=== PATIENT | male | born 1945 | race Caucasian/White ===

== ENCOUNTER 2016-10-11 05:19 | Inpatient (IN) ==
[2016-10-04 14:59] LABS: HEMATOCRIT 45.7 % (42.0-52.0); HEMOGLOBIN 15.6 g/dL (14.0-18.0); MCHC 34.1 g/dL (33-37); MCV 90.7 FL (81-99); RBC 5.04 XMIL (4.7-6.1)
[2016-10-04 15:05] LABS: INR 0.99; PROTIME 10.4 Seconds (9.2-11.7); PTT 28.1 Seconds (22.0-36.0)
[2016-10-04 15:33] LABS: AGAP 15; BUN 18 mg/dL (8-22); CALCIUM 8.9 mg/dL (8.8-10.2); CHLORIDE 101 mmol/L (98-107); COSMO 281; POTASSIUM 4.2 mmol/L (3.5-5.1); SODIUM 140 mmol/L (136-145); TCO2 24 mmol/L (25-35)
--- NOTE | 2016-10-04 16:18 | EKG Report ---
Test Performed on : 10/04/2016 2:40:24 PM Test Reason : pat Blood Pressure : / mmHG Vent. Rate : 064 BPM Atrial Rate : 064 BPM P-R Int : 242 ms QRS Dur : 092 ms QT Int : 398 ms P-R-T Axes : 066 -20 071 degrees QTc Int : 410 ms Sinus rhythm. with sinus arrhythmia. with 1st degree AV block. Otherwise normal ECG No previous ECGs available shifted left Inferior leads Nonspecific ST abnormality aVL Confirmed by Mayur Calvillo DO ([id number]) on 10/07/2016 3:41:34 PM
[2016-10-11] MEDS ORDERED: REGLAN ONE (05:40)
[2016-10-11] MEDS ORDERED: LR 1,000 ML ONE ×2 (05:40→09:34)
[2016-10-11] MEDS ORDERED: PEPCID ONE (05:40)
[2016-10-11] MEDS ORDERED: KEFZOL 2 GM/D5W 2 GM/50 ML IVPB ONE (05:40)
[2016-10-11] MEDS ORDERED: FENTANYL ONE (06:31)
[2016-10-11] MEDS ORDERED: DIPRIVAN 1% ONE (06:32)
[2016-10-11] MEDS ORDERED: XYLOCAINE-MPF 2% ONE (06:35)
[2016-10-11] MEDS ORDERED: NORCURON ONE (06:35)
[2016-10-11] MEDS ORDERED: ROBINUL ONE ×2 (06:35→07:59)
[2016-10-11] MEDS ORDERED: QUELICIN (DOSE) ONE (06:35)
[2016-10-11] MEDS ORDERED: OFIRMEV 1000 MG/ISOTONIC SOLN 1,000 MG/100 ML BOTTLE ONE (07:25)
[2016-10-11] MEDS ORDERED: NEOSTIGMINE ONE (07:59)
[2016-10-11 08:11] LABS: URINE MICRO REVIEW NEEDED? NO; URINE SOURCE CATH
[2016-10-11 08:17] LABS: BILIRUBIN URINE NEGATIVE (NEGATIVE); BLOOD URINE NEGATIVE (NEGATIVE); COLOR YELLOW; GLUCOSE URINE NEGATIVE (NEGATIVE); LEUKOCYTES URINE NEGATIVE (NEGATIVE); NITRITE URINE NEGATIVE (NEGATIVE); PH URINE 5.5; PROTEIN URINE NEGATIVE (NEGATIVE); SP GRAVITY URINE 1.016; TURBIDITY URINE CLEAR (CLEAR); UROBILINOGEN URINE NORMAL (NORMAL)
[2016-10-11 08:19] LABS: UR EPITHELIAL CELLS <10 /HPF (<10); URINE BACTERIA NEGATIVE /HPF; URINE RBC <10 /HPF (<10); URINE WBC <10 /HPF (<10)
[2016-10-11] MEDS ORDERED: NS 1,000 ML ONE (09:47)
[2016-10-11] MEDS ORDERED: DEMEROL ONE (10:00)
[2016-10-11] MEDS ORDERED: ZOFRAN IV PRN (12:33)
[2016-10-11] MEDS ORDERED: PHENERGAN IV PRN (12:33)
[2016-10-11] MEDS ORDERED: TYLENOL PO PRN (12:33)
[2016-10-11] MEDS ORDERED: PHENERGAN PO PRN (12:33)
[2016-10-11] MEDS ORDERED: DITROPAN PO PRN (12:33)
[2016-10-11] MEDS ORDERED: SODIUM CHLORIDE 0.9% INJ PRN (12:33)
[2016-10-11] MEDS ORDERED: LABETALOL IV PRN (12:33)
[2016-10-11] MEDS ORDERED: BENADRYL IV PRN (12:33)
[2016-10-11] MEDS ORDERED: PHENERGAN PR PRN (12:33)
[2016-10-11] MEDS ORDERED: B & O 15A SUPP PR PRN (12:33)
[2016-10-11] MEDS ORDERED: NORCO-7.5 PO PRN (12:33)
[2016-10-11] MEDS ORDERED: MORPHINE IV PRN (12:33)
[2016-10-11] MEDS ORDERED: BENADRYL LIQUID PO PRN (12:33)
[2016-10-11] MEDS: KEFZOL 1 GM/D5W 1 GM/50 ML IVPB IV SCH ×2 (14:54→23:01)
[2016-10-11] MEDS: NS 1,000 ML IV SCH (14:54)
[2016-10-11] MEDS: COLACE PO SCH (21:35)
[2016-10-12] MEDS: NS 1,000 ML IV SCH (02:41)
[2016-10-12 06:32] LABS: HEMATOCRIT 41.6 % (42.0-52.0); HEMOGLOBIN 14.3 g/dL (14.0-18.0); MCH 30.6 PG (27-31); MCHC 34.4 g/dL (33-37); MCV 89.1 FL (81-99); MPV 9.5 FL (7.4-10.4); RBC 4.67 XMIL (4.7-6.1)
[2016-10-12] MEDS: KEFZOL 1 GM/D5W 1 GM/50 ML IVPB IV SCH (06:40)
[2016-10-12 07:23] VITALS: BP 109/69
[2016-10-12 07:25] LABS: AGAP 10; BUN 11 mg/dL (8-22); CALCIUM 8.2 mg/dL (8.8-10.2); CHLORIDE 106 mmol/L (98-107); COSMO 282; POTASSIUM 4.1 mmol/L (3.5-5.1); SODIUM 142 mmol/L (136-145); TCO2 26 mmol/L (25-35)
[2016-10-12] MEDS: COLACE PO SCH (10:56)
--- NOTE | 2016-10-12 11:00 | PROGRESS NOTE ---
DATE: 10/12/2016 SUBJECTIVE: Mr. Mccord reports a good night overnight. His pain is well controlled. OBJECTIVE: Vital Signs: Temperature 99.2 degrees, pulse 60, BP 109/69. His urine output was recorded to be 3460 mL. General: No acute distress. Abdomen: Purple, tender, nondistended. Incisions are clean, dry, and intact. : Moreno catheter is draining straw-colored urine. PERTINENT LABORATORY DATA: White cell count 8000, hematocrit 42. Creatinine 0.7. ASSESSMENT: A 71-year-old male status post laparoscopic lysis of adhesions, robotic-assisted laparoscopic prostatectomy, and laparoscopic ureteral suspension. He is doing well. He was educated on postoperative care and reasons to seek immediate care if concerns arise. PLAN: 1. Discharge home with leg bag and large bag. 2. He is going home with prescriptions for [place] 7.5, Bactrim DS, Ditropan 5 mg p.r.n. 3. I will see him on 10/16/2016 for Moreno catheter removal and pathology reviewed. cc: Ugo Vila MD
--- NOTE | 2016-10-12 15:26 | OPERATIVE NOTE ---
PROCEDURE DATE: 10/11/2016 SURGEON: Dr. Ugo Vila. PREOPERATIVE DIAGNOSES: 1. Elevated PSA. 2. Prostate cancer. 3. History of previous open abdominal surgery. PRIMARY PROCEDURES: 1. Extensive laparoscopic lysis of adhesions (approximately 45 minutes spent). 2. Robotic-assisted laparoscopic prostatectomy. 3. Laparoscopic urethral suspension. INDICATIONS: A 71-year-old male, who was seen by another urologist and underwent prostate biopsy secondary to rise in PSA. It revealed [place] 6 prostate adenocarcinoma. He has a history of open abdominal surgery a number years ago with a large right lower quadrant scar. He switched his care and elected to proceed with surgical intervention. He was counseled on the risks extensively including specifically risks of long-term urinary incontinence and erectile dysfunction. He voiced understanding. FINDINGS: Significant adhesions of small bowel and mesentery to the abdominal wall and entire right lower quadrant prompting extensive lysis laparoscopically. He had quiet inflammatory reaction around the area of his neurovascular bundles, watertight vesicourethral anastomosis. DESCRIPTION OF PROCEDURE: After obtaining informed consent, the patient was brought to the operating room. Perioperative antibiotics and general endotracheal anesthesia were administered. He was placed in lithotomy position, prepped and draped in sterile fashion. An 18-German Moreno catheter was introduced with return of clear urine. A small stab incision was made in his umbilicus and Veress needle was introduced and connected to saline filled syringe. We confirmed positive drop test, followed by aspiration of syringe fluid without evidence of GI contents or blood. We insufflated peritoneal pressure to 15 mmHg. We marked our trocar sites in a standard fashion. Bovie electrocautery was used to incise the skin. Robotic camera trocar was introduced followed by the insertion of the camera itself. It revealed a significant amount of adhesions including mesentery and small bowel to the anterior abdominal wall and entire right lower quadrant. In there area, there was previous surgery presumably appendectomy. I placed additional 8 mm trocars on his left side and then docked the robot after placing the patient in steep Trendelenburg position. I then used meticulous cold sharp dissection to free off the bowel and mesentery. There was no obvious injury to the bowel. There was no evidence of active bleeding. Once that was cleaned up, I was able to introduce the right-sided 8 mm trocars. We then ensued with the operation. I incised the peritoneum approximately 3 cm above the rectum and was able to identify, isolate, and transect the right vas deferens. I then identified and dissected off right seminal vesicle avoiding the cautery at the posterolateral aspect. The same thing was then done on the left side. I then dissected anterior to the vas deferens to the level of prostate and posteriorly seminal vesicles through Denonvilliers fascia developing a perirectal plane. Following that, we turned our attention to dropping the bladder. I incise lateral to each medial umbilical ligaments and access space of Retzius. Endopelvic fascia was identified and cleaned off. I incised along the contour of the prostate and dissected toward the apex of the prostate. We transected the puboprostatic ligaments sharply. Superficial dorsal venous complex was controlled with a bipolar electrocautery. Deep dorsal venous complex was controlled with a 0 V-Loc suture in a [id number] fashion. We then turned attention to the bladder neck which was identified by gently tugging on the Moreno. Monopolar cautery was used to incise the lateral bladder neck until Moreno catheter was seen. It was then circumferentially incised. The Moreno was placed in anterior traction allowing us to elevate the prostate. Plane was developed between the prostate and the bladder posteriorly until the vas deferens and seminal vesicles came into the view. We then cleaned off the prostate laterally and posteriorly leaving us with the neurovascular bundles. I using Hem-o-Olamide on neurovascular bundles but some of the tissue was quite thick and despite using or isolating very small areas, Hem-o-Olamide clips had a hard time securing in place. Hence, I had to use some cautery in that region of the neurovascular bundles. We were then able to dissect the prostate toward its apex posteriorly. Deep dorsal venous complex was transected. Tissue around periurethral shoulders was isolated. I did use partial urethral length preservation technique. The urethra was transected sharply and the prostate was delivered to the field and placed into the EndoCatch bag. The operative field was irrigated and there was no evidence of active bleeding. We turned attention to the Vinny stitch. 3-0 V-Loc suture was used to reapproximate perivesical and periurethral fascia in a running fashion. Following that, I used 3-0 V-Loc suture for formal vesicourethral anastomosis in a running fashion in clockwise and counter clockwise fashion, subsequently cross tying the sutures. A fresh 18-German Moreno catheter was then introduced. Pneumoperitoneum pressure was decreased to 3 mmHg. We distended the bladder with 240 mL of normal saline without evidence of leakage at the vesicourethral anastomosis. We then turned attention to the laparoscopic urethral suspension, which was done by using previously placed Vinny sutures and placing the sutures through the periosteum of the patient's bony pelvis. The sutures were placed on tension allowing the urethra to be suspended. We then decreased pneumoperitoneum pressure again, and there was no evidence of bleeding. The trocars were removed after robot was undocked. A supraumbilical incision was extended and the prostate was delivered. Wounds were copiously irrigated. O Vicryl suture was used to reapproximate the fascia in interrupted fashion figure-of- eight style. The 12 mm topographical field assistant trocar was closed as well. Wounds were irrigated again. A 4-0 Monocryl suture was then used for subcuticular closure followed by application of Dermabond skin adhesive. He was extubated and taken to PACU for further recovery. ESTIMATED BLOOD LOSS: 75 mL. COMPLICATIONS: None. DISPOSITION: To PACU and subsequently floor for observation with Moreno catheter to gravity drainage. cc: Ugo Vila MD
== END 2016-10-12 12:04 | disposition home or self-care (01) ==
LOC: SURHOLD 05:19 → 4N 11:45
PROVIDERS: ADMIT Urology; ATTEND Urology